=== PATIENT | female | born 1990 | race Caucasian/White ===

== ENCOUNTER 2016-11-18 01:23 | Emergency (ER) | payer SELFPAY ==
[~2016-11-18] VITALS: Ht 167.6 cm; Wt 87.5 kg
[2016-11-18 01:26] VITALS: BP 137/74
--- NOTE | 2016-11-18 01:49 | NUR ---
TO ER BED 8
--- NOTE | 2016-11-18 02:00 | NUR ---
Patient being evaluated by physician at bedside.
--- NOTE | 2016-11-18 02:00 | NUR ---
26 YEAR OLD FEMALE BIB BY PARTNER WITH ABDOMINAL PAIN 910 SINCE 6AM YESTERDAY. CLAIMED THAT HAD N/V/D AND HEADACHE. EXAMINED BY DR. MEDLEY AT BEDSIDE.
[2016-11-18] MEDS ORDERED: LIDOCAINE VISCOUS 2% 20 ML UDC PO ONE (02:10)
[2016-11-18] MEDS ORDERED: HYDROcodone/APAP 5/325 MG 1 TAB TAB PO ONE (02:10)
[2016-11-18] MEDS ORDERED: NACL 0.9% 2,000 ML IV ONE (02:10)
[2016-11-18] MEDS ORDERED: ONDANSETRON 4 MG/5 ML ORASYR PO ONE (02:10)
[2016-11-18] MEDS ORDERED: ALUMINUM HYD/MAG/SIMETHICONE 30 ML UDC PO ONE (02:10)
[2016-11-18 04:15] VITALS: BP 126/69
--- NOTE | 2016-11-18 04:15 | NUR ---
Patient discharged with v/s stable. Written and verbal after care instructions given and explained WITH RX HAYDER. Patient verbalized understanding. Ambulatory with steady gait. All questions addressed prior to discharge. Advised to follow up with PMD. DISCHARGED PER DR. MEDLEY.
== END 2016-11-18 04:15 | disposition home or self-care (01) ==
LOC: MED 01:23
DX: R10.13 Epigastric pain (principal); R50.9 Fever, unspecified
CPT/HCPCS: 36415; 80053; 81001; 81025; 83690; 85025; 87086; 96360; 99284; J7030; Q0162